=== PATIENT | female | born 1980 | race Two or more races ===

== ENCOUNTER 2016-12-22 14:14 | Emergency (ER) | payer MEDICAID ==
[~2016-12-22] VITALS: Ht 160 cm; Wt 52.2 kg
[2016-12-22 14:34] VITALS: BP 158/109
== END 2016-12-22 17:15 | disposition left against medical advice (07) ==
LOC: ER 14:14
DX: R07.9 Chest pain, unspecified (principal); Z53.21 Procedure and treatment not carried out due to patient leaving prior to being seen by health care provider